=== PATIENT | female | born 1995 | race Caucasian/White ===

== ENCOUNTER 2019-05-18 15:56 | Emergency (ER) | payer SELFPAY ==
--- NOTE | 2019-05-18 17:48 | RAD ---
XR Lumbar Spine 2 Or 3 View History: Pain Comparison: None. Findings: 5 nonrib-bearing lumbar-type vertebrae. No acute fracture or malalignment. Right upper quad rant surgical clips. There appear to be calcifications projecting over the right renal shadow. Impression: 1. No acute fracture or malalignment. 2. Calcifications projecting over the right renal shadow suggesting nephrolithiasis.
--- NOTE | 2019-05-18 17:49 | RAD ---
XR Knee Lt 4 View STANDARD History: Knee pain Comparison: None. Findings: No acute fracture or malalignment. No significant joint effusion. Impression: No acute fracture or malalignment.
== END 2019-05-18 18:32 | disposition home or self-care (01) ==
LOC: ERS 15:56
DX: S81.812A Laceration without foreign body, left lower leg, initial encounter (principal); S81.811A Laceration without foreign body, right lower leg, initial encounter; S40.212A Abrasion of left shoulder, initial encounter; S60.512A Abrasion of left hand, initial encounter; S60.511A Abrasion of right hand, initial encounter; M54.5 Low back pain; M25.562 Pain in left knee; F32.9 Major depressive disorder, single episode, unspecified; F43.10 Post-traumatic stress disorder, unspecified; F41.0 Panic disorder [episodic paroxysmal anxiety]; F17.210 Nicotine dependence, cigarettes, uncomplicated; W19.XXXA Unspecified fall, initial encounter
CPT/HCPCS: 72100

== ENCOUNTER 2019-06-03 06:16 | Emergency (ER) | payer SELFPAY ==
[2019-06-03] MEDS ORDERED: HYDROcodone/Acetaminophen 5/325 mg Tablet ONE (07:46)
--- NOTE | 2019-06-03 08:15 | RAD ---
Radiograph right third digit 3 views: HISTORY: Traumatic injury to third digit in 23-year-old female FINDINGS: No subcutaneous emphysema, fracture, periostitis, or radiopaque foreign body. Joints are normal. IMPRESSION: Negative
[2019-06-03] MEDS ORDERED: traMADol HCl 50 MG TAB ONE (08:41)
== END 2019-06-03 08:53 | disposition home or self-care (01) ==
LOC: ERS 06:16
DX: S61.302A Unspecified open wound of right middle finger with damage to nail, initial encounter (principal); F41.9 Anxiety disorder, unspecified; F32.9 Major depressive disorder, single episode, unspecified; F17.210 Nicotine dependence, cigarettes, uncomplicated; X58.XXXA Exposure to other specified factors, initial encounter

== ENCOUNTER 2019-09-01 15:41 | Emergency (ER) | payer SELFPAY ==
[2019-09-01 16:32] LABS: #Eosinphils 0.1 thou/uL (0.0-0.7); #Lymphocytes 2.6 thou/uL (1.20-3.40); #Monocytes 0.9 thou/uL (0.11-0.59); #Neutrophils 7.4 thou/uL (1.40-6.50); %Basophils 0.4 % (0.0-1.0); %Eosinophils 0.8 % (0.0-10.0); %Lymphocytes 23.4 % (21.0-51.0); %Monocytes 7.7 % (0.0-10.0); %Neutrophils 67.6 % (42.0-75.0); Hemoglobin 12.9 g/dL (12.0-16.0); Mean Corpuscular HGB CONC 34.7 g/dL (32.0-36.0); Mean Corpuscular Hemoglobin 30.2 pg (27.0-31.0); Mean Platelet Volume 6.9 fL (7.4-10.4); Platelet Count 246 thou/uL (130-400); RBC Distribution Width 10.9 % (11.5-14.5); Red Blood Cell (RBC) Count 4.27 mill/uL (4.20-5.40)
[2019-09-01 16:35] LABS: Bacteria/HPF 4+ HPF (None Seen); Bilirubin Negative (Negative); Blood, Urine Negative (Negative); Clarity Turbid (Clear); Glucose, Urine (Dipstick) Normal (Negative); Leukocyte 75 Leu/uL (Negative); Nitrite Negative (Negative); Protein, Urine (Dipstick) Negative (Neg-Trace); RBC/HPF 0-3 HPF (0-3); Squamous Epithelial 0-3 HPF (0-3); Urobilinogen Normal mg/dL (Less than 2)
[2019-09-01 16:36] LABS: Pregnancy Test - Urine (BHCG) Negative (Negative); Pregu Control Background? CLEAR/WHITE (CLR/WHITE); Pregu Control Bar Appear? YES (CONTROL BAR)
[2019-09-01 17:08] LABS: ALT (SGPT) 9 U/L (8-55); AST (SGOT) 15 U/L (5-34); Albumin 4.3 g/dL (3.5-5.0); Alkaline Phosphatase 48 U/L (40-110); Anion Gap 10 mmol/L (10-20); BUN (Urea Nitrogen) 15 mg/dL (7.0-18.7); Bilirubin, Total 0.5 mg/dL (0.2-1.2); Calc. Creatinine Clearance 0 mL/min (70-130); Calcium 9.3 mg/dL (7.8-10.44); Carbon Dioxide 24 mmol/L (22-29); Chloride 102 mmol/L (98-107); Estimated GFR-MDRD 71; Glucose 147 mg/dL (70-105); Lipase 30 U/L (8-78); Potassium 3.6 mmol/L (3.5-5.1); Protein, Total 7.3 g/dL (6.0-8.3); Sodium 132 mmol/L (136-145)
[2019-09-01] MEDS ORDERED: diphenhydrAMINE 50 MG/ML VIAL ONE (18:54)
[2019-09-01] MEDS ORDERED: Metoclopramide HCl 10 MG/2 ML VIAL ONE (19:25)
[2019-09-01] MEDS ORDERED: methylPREDNISolone Sod Succ/PF 125 MG/2 ML VIAL ONE (19:35)
--- NOTE | 2019-09-01 20:21 | CT ---
CT HEAD NONCONTRAST: 09/01/19 INDICATION: Headache, pain. FINDINGS: There is focal CSF density of the posterior fossa which may be related to an arachnoid cyst or isai c isterna magna. No ventriculomegaly, mass effect, midline shift or acute intracranial hemorrhage. Mild mucosal thickening of the paranasal sinuses is present. IMPRESSION: No acute intracranial hemorrhage or mass effect. POS: [id number]
== END 2019-09-02 00:45 | disposition home or self-care (01) ==
LOC: ERS 15:41
DX: N39.0 Urinary tract infection, site not specified (principal); F43.10 Post-traumatic stress disorder, unspecified; F41.9 Anxiety disorder, unspecified; F32.9 Major depressive disorder, single episode, unspecified; F17.290 Nicotine dependence, other tobacco product, uncomplicated
CPT/HCPCS: 36415; 70450; 80053; 81003; 81015; 81025; 83690; 85025; 87077; 87086; 87186; 87804; 96365; 96366; 96375; 96376; J1200; J2765; J2930